=== PATIENT | female | born 1960 | race Caucasian/White ===

== ENCOUNTER 2023-09-12 19:07 | Emergency (ER) | payer OTHER, SELFPAY ==
[2023-09-12 19:09] VITALS: BP 198/103
[2023-09-12 19:27] LABS: % Basophils 0.5 % (0-2); % Eosinophils 0.6 % (0-6); % Immature Granulocytes 0.3 % (0-0.5); % Lymphocytes 38.2 % (20.5-51.1); % Monocytes 5.9 % (1.7-9.3); % Neutrophils 54.5 % (42.2-75.2); Absolute Eosinophils 0.1 10^3/uL (0-0.7); Absolute Monocytes 0.5 10^3/uL (0.1-0.6); Absolute Neutrophils 4.3 10^3/uL (1.4-6.5); Hematocrit 37.6 % (37.0-47.0); Hemoglobin 13.4 g/dL (12.0-16.0); Mean Corp Hgb Conc. 35.6 g/dL (33.0-37.0); Mean Corpuscular Hgb 30.2 pg (27.0-31.0); Mean Corpuscular Volume 84.9 fL (81.0-99.0); Nucleated Red Blood Cells % 0 %; Platelet Count 298 10^3/uL (130-400); Red Blood Cell Count 4.43 10^6/uL (4.20-5.40); Red Cell Dist. Width 13.3 % (11.5-14.5); White Blood Cell Count 7.8 10^3/uL (4.8-10.8)
--- NOTE | 2023-09-12 19:42 | ED.GENMED ---
History of Present Illness
General
Chief Complaint: Chest Pain
Time Seen by Provider: 09/12/23 19:41
Travel History
Have you had any contact with someone who has COVID-19?: No
Do you have any symptoms of coronavirus? Fever > 100 degrees, chills, cough, shortness of breath, sore throat, loss of taste or smell, muscle aches, or headache?: No
History of Present Illness
History of Present Illness:
HPI: The patient has had about a month worth of chest discomfort more so on the left side. More recently the pain has been going down the arm and then today she thought she had some left hand weakness but overall that has improved. She has been
having some GI upset as well. She has been taking PPI intermittently in the past but currently has been taking it twice daily. She could not get into see GI until the end of next month. She had some discomfort as well and with the discomfort
going down the left arm she was recommended to have an MRI which she already will obtain as an outpatient.
EXAM:
GENERAL: Well appearing in no distress
HEENT: Moist oral mucosa
CARDIOVASCULAR: No murmurs, normal heart rate, regular rhythm, No chest wall tenderness
PULMONARY: No respiratory distress, breath sounds are clear and equal
ABDOMEN: Soft with no peritoneal signs, no tenderness
NEUROLOGIC: Excellent strength all extremities, no coordination deficits, excellent strength in the left upper extremity including an ulnar, median, and radial nerve distribution
PSYCHIATRIC: Appropriate mental status, normal insight and judgement
EXTREMITIES: Nontender, no edema, moves all extremities equally
SKIN: No rash, no lesions
TIME OF INITIAL ENCOUNTER: 8 PM
NUMBER AND COMPLEXITY OF PROBLEMS ADDRESSED AT THE ENCOUNTER
� Chronic conditions affecting care: High blood pressure, hyperlipidemia, GERD, hypothyroidism
� Acute Exacerbation and/or Progression of Chronic Illness: This is a subacute problem
� Differential Diagnosis includes: Exacerbation of GERD, hiatal hernia, cervical radiculopathy
AMOUNT AND/OR COMPLEXITY OF DATA TO BE REVIEWED AND ANALYZED
� I performed an independent evaluation of and my interpretation is:
EKG: Sinus 67, right bundle branch block with associated ST abnormality with no old EKG to compare
CT:
X-rays: I personally viewed chest x-ray�evidence of moderate to large hiatal hernia
Laboratory Studies: CBC normal, potassium only 2.9, bicarb slightly high at 32, alk phos is 234
Other:
� Review of other/old records: I look for an old EKG in [email or web address] however there are no old records available for review
� Clinical information was obtained by an independent historian: Spoke to at bedside
� Prescriptions/Medications Considered but not given:
� Further testing considered but not performed:
RISK OF COMPLICATIONS AND/OR MORBIDITY OR MORTALITY OF PATIENT MANAGEMENT
� Social determinants of health affecting care: Lives at home
� Discussion with other providers: Discussed with radiology and also asked GI front office for close follow-up
� Escalation of care including admission/observation vs risk of discharge considered: The patient has ongoing left-sided chest discomfort was some symptoms down the left arm symptoms also seem to be related to eating�favor more
of a GI etiology. She is already taking a PPI twice daily. Troponin negative. EKG shows right bundle branch block states she has been told this in the past. I have also sent a prescription for Carafate to her pharmacy. She has an upcoming
stress test this coming Sunday.
Phy Exam
Physical Exam
Physical Exam:
See HPI
Scores
Heart Score for Chest Pain Patients
STEMI patient?: Not applicable
Course
Orders/Labs/Results
Orders:
Orders
09/12/23 19:09
EKG [Electrocardiogram (*1)] Urgent
Reason for Study: Chest Pain
EKG- Treatment ONCE
09/12/23 19:12
CXR2 [CR Chest - 2 Views ] Urgent
Comment:
Reason For Exam: cp
09/12/23 19:18
Complete Blood Count/With Diff Urgent
Comprehensive Metabolic Panel Urgent
Troponin I Urgent
09/12/23 20:01
Potassium Chloride Powder [Klor-Con] 60 meq PO NOW STA
Abnormal Lab Results
09/12/23
19:18
Potassium 2.9 L mmol/L
(3.5-5.1)
Chloride 94 L mmol/L
(98-107)
Carbon Dioxide 32 H mmol/L
(22-30)
BUN 21 H mg/dl
(7-17)
Glucose 160 H mg/dl
(70-99)
ALT 51 H U/L
(0-35)
Alkaline Phosphatase 234 H U/L
(38-126)
09/12/23 19:18
09/12/23 19:18
Vital Signs
Initial and Last Documented VS:
Initial Vital Signs
Temp Pulse Resp BP Pulse Ox
97.5 F 74 16 198/103 99
09/12/23 19:09 09/12/23 19:09 09/12/23 19:09 09/12/23 19:09 09/12/23 19:09
Last Documented Vital Signs
Temp Pulse Resp BP Pulse Ox
97.5 F 74 16 198/103 99
09/12/23 19:09 09/12/23 19:09 09/12/23 19:09 09/12/23 19:09 09/12/23 19:09
*Critical Care Note
Total Time (30-74mins, 75-104mins- exclusive of procedures): Not Applicable
ED Attending Note
-
Portions of this chart may have been created with voice recognition software.� Occasional wrong word or��sound alike� substitutions may have occurred due to the inherent limitations of voice recognition software.
Discharge Plan
Departure
Patient Disposition: Home (Routine Discharge)
Date of Disposition: 09/12/23
Time of Disposition: :23
Patient with high blood pressure during this ER visit?: Yes
Discharge Problem:
Hernia, hiatal
Instructions: Hiatal Hernia (DC)
Prescriptions:
New
sucralfate [Carafate] 100 mg/mL suspension
10 ml PO ACHS Qty: 420 0RF
No Action
tizanidine 4 mg tablet
4 mg PO HS PRN (Reason: leg pain)
chlorthalidone 25 mg tablet
25 mg PO DAILY
omeprazole 40 mg capsule,delayed release(DR/EC)
80 mg PO NOON
levothyroxine 100 mcg tablet
100 mcg PO DAILY
Referrals:
Rachel Mercer MD [Active] - Follow up in 2-3 days
Activity Restrictions/Additional Instructions:
I did send a message to the GI office so hopefully they will call you soon to see if they can get you in sooner. Continue your PPI medication. Chest x-ray shows a moderate to large hiatal hernia. Your potassium level is low and I have ordered
potassium replacement tonight. Return here if worse.
Interventions
Interventions:
*Risk Screen - Suicide Last Done: 09/12/23 19:09
*General Assessment Last Done: 09/12/23 19:09
*Neglect/Abuse Screening Last Done: 09/12/23 19:09
*ED COVID-19 Vaccine History Last Done: 09/12/23 19:09
[2023-09-12 19:48] LABS: ALT (SGPT) 51 U/L (0-35); AST (SGOT) 28 U/L (14-36); Albumin 4.5 g/dl (3.5-5.0); Alkaline Phosphatase 234 U/L (38-126); Blood Urea Nitrogen 21 mg/dl (7-17); Calcium 9.8 mg/dl (8.4-10.2); Carbon Dioxide 32 mmol/L (22-30); Chloride 94 mmol/L (98-107); Glucose 160 mg/dl (70-99); Potassium 2.9 mmol/L (3.5-5.1); Sodium 135 mmol/L (135-145); Total Bilirubin 0.8 mg/dl (0.2-1.3); Total Protein 7.8 g/dl (6.3-8.2); eGFR > 60.00
[2023-09-12 19:51] LABS: Troponin I < 0.012 ng/ml
[2023-09-12] MEDS: KLOR-CON 60 MEQ PO (20:24)
[2023-09-12 20:37] VITALS: BP 144/98
== END 2023-09-12 20:42 | disposition home or self-care (01) ==
LOC: EMR 19:07
PROVIDERS: Emergency Medicine; EMERGENCY PHYSICIAN Emergency Medicine; FAMILY PHYSICIAN Nurse Practitioner Adult Health
DX: K44.9 Diaphragmatic hernia without obstruction or gangrene (principal); R07.89 Other chest pain; K30 Functional dyspepsia; R03.0 Elevated blood-pressure reading, without diagnosis of hypertension; I45.10 Unspecified right bundle-branch block; Z88.1 Allergy status to other antibiotic agents
CPT/HCPCS: 99283; 71046; 80053; 84484; 85025; 93005